=== PATIENT | female | born 1995 | race Caucasian/White ===

== ENCOUNTER 2017-11-26 21:09 | Emergency (ER) | payer BC, OTHER ==
[2017-11-26 21:37] LABS: #Eosinphils 0.2 thou/uL (0.0-0.7); #Lymphocytes 2.5 thou/uL (1.20-3.40); #Monocytes 0.8 thou/uL (0.11-0.59); #Neutrophils 7.4 thou/uL (1.40-6.50); %Basophils 0.4 % (0.0-1.0); %Eosinophils 1.6 % (0.0-10.0); %Lymphocytes 22.7 % (21.0-51.0); %Monocytes 7.6 % (0.0-10.0); %Neutrophils 67.7 % (42.0-75.0); Hemoglobin 14.5 g/dL (12.0-16.0); Mean Corpuscular HGB CONC 32.9 g/dL (32.0-36.0); Mean Corpuscular Hemoglobin 30.4 pg (27.0-31.0); Mean Corpuscular Volume 92.5 fL (78.0-98.0); Mean Platelet Volume 7.2 fL (7.4-10.4); Platelet Count 335 thou/uL (130-400); RBC Distribution Width 11.2 % (11.5-14.5); Red Blood Cell (RBC) Count 4.75 mill/uL (4.20-5.40); White Blood Cell (WBC) Count 10.8 thou/uL (4.8-10.8)
[2017-11-26 21:41] LABS: Bilirubin Negative (Negative); Blood, Urine Negative (Negative); Clarity CLEAR (Clear); Glucose, Urine (Dipstick) Negative (Negative); Leukocyte Negative (Negative); Nitrite Negative (Negative); Protein, Urine (Dipstick) Negative (Neg-Trace); Specific Gravity, Urine 1.014 (1.002-1.036); Urobilinogen 0.2 mg/dL (0.2-1.0); pH, Urine 6.5 (5.0-9.0)
[2017-11-26 21:57] LABS: ALT (SGPT) 11 U/L (8-55); AST (SGOT) 13 U/L (5-34); Albumin 4.5 g/dL (3.5-5.0); Alkaline Phosphatase 69 U/L (40-150); Anion Gap 12 mmol/L (10-20); BUN (Urea Nitrogen) 9 mg/dL (7.0-18.7); Bilirubin, Total 0.2 mg/dL (0.2-1.2); Calc. Creatinine Clearance 0 mL/min (70-130); Calcium 9.9 mg/dL (7.8-10.44); Carbon Dioxide 25 mmol/L (22-29); Chloride 102 mmol/L (98-107); Estimated GFR-MDRD Greater than 90; Globulin 3.1 g/dL (2.4-3.5); Glucose 85 mg/dL (70-105); Protein, Total 7.6 g/dL (6.0-8.3); Sodium 135 mmol/L (136-145)
[2017-11-26] MEDS ORDERED: Acetaminophen 325 MG TAB ONE (23:37)
--- NOTE | 2017-11-26 23:49 | ULT ---
ULTRASOUND EARLY OBSTETRICAL: Date: 11-26-17 Time: 10:23 p.m. History: 22-year-old female with pelvic pain. Rule out ovarian torsion. Evaluate . FINDINGS: There is an intrauterine gestational sac with crown-rump length of 4.6 cm, 11 w 3 d gestational age. A tiny, thin hypoechoic stripe adjacent to the gestational sac is questionable for minimal subchorion ic hemorrhage. heart rate is 162 bpm. No free fluid in the cul-de-sac. The right ovary is 4.5 x 2 x 3 cm. It contains a 1.5 x 1.5 x 1 cm dominant follicle or corpus luteal cyst. Left ovary is 2 x 1 x 2 cm. Blood flow is demonstrated in both ovaries by doppler. IMPRESSION: 1. Live, late first trimester intrauterine gestation estimated to be 11 weeks 3 days gestational age. 2. Questionable tiny subchronic hemorrhage. 3. No ovarian torsion. POS: [facility]
[2017-11-28 21:45] LABS: Chlamydia by PCR Not Detected (NotDetected); GC by PCR Not Detected (NotDetected)
== END 2017-11-26 23:58 | disposition home or self-care (01) ==
LOC: ERS 21:09
DX: O99.611 Diseases of the digestive system complicating pregnancy, first trimester (principal); A08.4 Viral intestinal infection, unspecified; Z3A.10 10 weeks gestation of pregnancy
CPT/HCPCS: 36415; 76856; 80053; 81003; 84702; 85025; 87480; 87491; 87510; 87591; 87660

== ENCOUNTER 2017-12-04 14:19 | Emergency (ER) | payer BC, OTHER ==
[2017-12-04] MEDS ORDERED: Ondansetron HCl/PF 4 MG/2 ML Vial ONE (14:54)
[2017-12-04 14:58] LABS: #Lymphocytes 0.9 thou/uL (1.20-3.40); #Monocytes 0.4 thou/uL (0.11-0.59); #Neutrophils 10.3 thou/uL (1.40-6.50); %Basophils 0.1 % (0.0-1.0); %Eosinophils 0.3 % (0.0-10.0); %Monocytes 3.7 % (0.0-10.0); %Neutrophils 87.8 % (42.0-75.0); Hemoglobin 14.9 g/dL (12.0-16.0); Mean Corpuscular HGB CONC 33.9 g/dL (32.0-36.0); Mean Corpuscular Hemoglobin 31.1 pg (27.0-31.0); Mean Corpuscular Volume 91.9 fL (78.0-98.0); Mean Platelet Volume 7.3 fL (7.4-10.4); Platelet Count 297 thou/uL (130-400); RBC Distribution Width 11.3 % (11.5-14.5); Red Blood Cell (RBC) Count 4.78 mill/uL (4.20-5.40); White Blood Cell (WBC) Count 11.7 thou/uL (4.8-10.8)
[2017-12-04 15:11] LABS: Bilirubin Negative (Negative); Blood, Urine Negative (Negative); Clarity CLEAR (Clear); Glucose, Urine (Dipstick) Negative (Negative); Leukocyte Negative (Negative); Nitrite Negative (Negative); Protein, Urine (Dipstick) Negative (Neg-Trace); Specific Gravity, Urine 1.027 (1.002-1.036); Urobilinogen 0.2 mg/dL (0.2-1.0)
[2017-12-04 15:30] LABS: ALT (SGPT) 15 U/L (8-55); AST (SGOT) 17 U/L (5-34); Albumin 4.6 g/dL (3.5-5.0); Alkaline Phosphatase 72 U/L (40-150); Anion Gap 16 mmol/L (10-20); BUN (Urea Nitrogen) 8 mg/dL (7.0-18.7); Bilirubin, Total 0.9 mg/dL (0.2-1.2); Calc. Creatinine Clearance 0 mL/min (70-130); Calcium 9.7 mg/dL (7.8-10.44); Carbon Dioxide 20 mmol/L (22-29); Chloride 102 mmol/L (98-107); Estimated GFR-MDRD Greater than 90; Globulin 3.2 g/dL (2.4-3.5); Glucose 77 mg/dL (70-105); Potassium 3.8 mmol/L (3.5-5.1); Protein, Total 7.8 g/dL (6.0-8.3); Sodium 134 mmol/L (136-145)
[2017-12-04] MEDS ORDERED: Acetaminophen 325 MG TAB ONE (17:01)
--- NOTE | 2017-12-04 18:33 | ULT ---
PELVIC ULTRASOUND: 12/04/2017 HISTORY: Nausea and vomiting. FINDINGS: There is a fluid collection seen in the endometrial canal, which contains a pole. [place]-rump l ength measures 5.43 cm, consistent with a gestational age, by ultrasound, of 12 weeks, with an JOSE LUIS of 06/18/2018. Cardiac Doppler does demonstrate heart tones with a heart rate of 155 beats per minute. Yolk sac is visualized. No subchorionic hemorrhage is appreciated on provided images. The right ovary is not visualized. The left ovary is visualized and demonstrates a normal sonographi c appearance, measuring 2.5 cm x 1.1 cm x 1.3 cm. Doppler evaluation of the left ovary with spectral analysis and color-flow evaluation does demonstrate venous flow with suggestion of arterial flow as well. No free fluid is seen in the cul-de-sac. IMPRESSION: Single intrauterine gestation with heart tones documented. Gestational age by measurement of t he crown-rump length is 12 weeks, with an estimated date of delivery of 06/18/2018. Gestational age by last menstrual period is 11 weeks 5 days. POS: [facility]
--- NOTE | 2017-12-04 18:43 | ULT ---
GALLBLADDER ULTRASOUND: INDICATIONS: Right upper quadrant pain. FINDINGS: The gallbladder has a normal sonographic appearance. No evidence of gallstones identified. The comm on duct is of normal caliber. The visualized liver and right kidney appear unremarkable. The pancre as is mostly obscured. IMPRESSION: Unremarkable gallbladder ultrasound. POS: [facility]
== END 2017-12-04 18:47 | disposition home or self-care (01) ==
LOC: ERS 14:19
DX: O21.9 Vomiting of pregnancy, unspecified (principal); Z3A.11 11 weeks gestation of pregnancy
CPT/HCPCS: 76705; 76856; 80053; 81003; 85025; 93976; 96361; 96374; J2405